=== PATIENT | male | born 2005 | race Hispanic/Latino ===

== ENCOUNTER 2023-01-07 14:50 | Outpatient (CLI) | payer BC | END 2023-01-07 14:51 | disposition home or self-care (01) | LOC: BICCT 14:50 | PROVIDERS: ATTEND Physician Assistant Medical | DX: R11.2 Nausea with vomiting, unspecified (principal); R63.4 Abnormal weight loss; R10.10 Upper abdominal pain, unspecified; R59.1 Generalized enlarged lymph nodes | CPT/HCPCS: 74177 ==

== ENCOUNTER → 2023-09-03 | Day surgery (SDC) | payer BC ==
[~2023-09-03] MED LIST: Bupivacaine PF 0.5% 30 ML VIAL ONE; EPINEPHrine 1 MG/ML VIAL ONE; Iopamidol-370 76% 500 ML MDV (1 ML CHARGE) ONE; Ketorolac Tromethamine 30 MG/ML VIAL ONE; Lidocaine 1% PF 5 ML VIAL ONE; Ondansetron PF 4 MG/2 ML Vial ONE; PROPOFOL 20 ML ONE; PROPOFOL 200 MG/20 ML VIAL ONE; Piperacillin/Tazobactam 4.5 GM VIAL ONE; Rocuronium Bromide 10 MG/ML (10ML VIAL) ONE; SUGAMMADEX SODIUM 200 MG/2 ML VIAL ONE; Sodium Chloride 0.9% 100 ML ONE; Succinylcholine 200 MG/10 ml SYRINGE FS ONE; fentaNYL PF 100 MCG/2 ML SYRINGE ONE; traMADol HCl 50 MG TAB ONE
[2023-09-03 13:21] LABS: #Monocytes 1.2 thou/uL (0.11-0.59); #Neutrophils 10.2 thou/uL (1.40-6.50); %Basophils 0.3 % (0.0-1.0); %Eosinophils 0.3 % (0.0-10.0); %Monocytes 8.9 % (0.0-4.0); %Neutrophils 77.3 % (31.0-61.0); Hematocrit 44.5 % (42.0-52.0); Hemoglobin 15.1 g/dL (14.0-18.0); Mean Corpuscular HGB CONC 33.9 g/dL (32.0-36.0); Mean Corpuscular Volume 88.5 fl (78.0-98.0); Mean Platelet Volume 10.8 fL (7.4-10.4); Platelet Count 213 10x3/uL (130-400); RBC Distribution Width 12.3 % (11.5-14.5); Red Blood Cell (RBC) Count 5.03 mill/uL (4.00-5.20); White Blood Cell (WBC) Count 13.2 10x3/uL (4.8-10.8)
[2023-09-03 13:33] LABS: Bacteria/HPF None Seen HPF (None Seen); Bilirubin Negative (Negative); Blood, Urine Negative (Negative); CAUTI Indications for Culture Pelvic or flank pain; Clarity Extra Turbid (Clear); Glucose, Urine (Dipstick) Normal (Negative); Ketone, Urine 100 mg/dL (Negative); Leukocyte Negative Leu/uL (Negative); Nitrite Negative (Negative); Protein, Urine (Dipstick) 20 mg/dL (Neg-Trace); RBC/HPF None Seen HPF (0-3); Specific Gravity, Urine 1.023 (1.002-1.036); Squamous Epithelial None Seen HPF (0-3); Urobilinogen Normal mg/dL (Less than 2); WBC/HPF None Seen HPF (0-3)
[2023-09-03 13:35] LABS: Urine Culture Reflex No No
[2023-09-03 13:42] LABS: ALT (SGPT) 51 U/L (8-55); AST (SGOT) 20 U/L (10-45); Albumin 4.8 g/dL (3.5-5.0); Alkaline Phosphatase 106 U/L (50-130); Anion Gap 13 mmol/L (10-20); BUN (Urea Nitrogen) 13 mg/dL (8.4-21.0); Calc. Creatinine Clearance 0 mL/min (70-130); Calcium 9.9 mg/dL (7.8-10.44); Carbon Dioxide 28 mmol/L (22-29); Chloride 103 mmol/L (98-107); Estimated GFR 134; Globulin 3.3 g/dL (2.4-3.5); Glucose 103 mg/dL (70-105); Lipase 13 U/L (8-78); Potassium 3.7 mmol/L (3.5-5.1); Protein, Total 8.1 g/dL (6.0-8.3); Sodium 140 mmol/L (136-145)
== END ==
LOC: ERS 11:51 → SDC 14:24
PROVIDERS: ATTEND Specialist
PROC: 0DTJ4ZZ Resection of Appendix, Percutaneous Endoscopic Approach (ICD-10-PCS; principal; 2023-09-03)
DX: K35.80 Unspecified acute appendicitis (principal); F12.90 Cannabis use, unspecified, uncomplicated
CPT/HCPCS: 74177; 80053; 81001; 83690; 85025; 88304; 96374; 96375; A4314; A4649; J0171; J1885; J2405; J2543; J2704; J3490; Q9967; S0020

== ENCOUNTER 2023-11-14 15:21 | Outpatient (CLI) | payer BC ==
[2023-11-14 16:04] LABS: #Monocytes 0.2 10x3/uL (0.0-1.1); %Basophils 0.4 % (0.0-2.0); %Eosinophils 0.2 % (0.0-6.0); %Lymphocytes 30.7 % (18.0-47.0); %Monocytes 5.1 % (0.0-10.0); %Neutrophils 63.4 % (40.0-75.0); Hematocrit 43.1 % (38.8-50.0); Hemoglobin 14.6 g/dL (13.5-17.5); Mean Corpuscular HGB CONC 33.9 g/dL (32.0-36.0); Mean Corpuscular Hemoglobin 30.4 pg (27.0-33.0); Mean Corpuscular Volume 89.6 fl (81.2-95.1); Mean Platelet Volume 10.7 fl (7.4-10.4); Platelet Count 204 10x3/uL (150-450); RBC Distribution Width 11.9 % (11.5-14.5); Red Blood Cell (RBC) Count 4.81 10x6/uL (4.32-5.72); White Blood Cell (WBC) Count 4.7 10x3/uL (3.5-10.5)
== END 2023-11-14 15:22 | disposition home or self-care (01) ==
LOC: LABBT 15:21
PROVIDERS: ATTEND Surgery
DX: Z01.812 Encounter for preprocedural laboratory examination (principal); K40.90 Unilateral inguinal hernia, without obstruction or gangrene, not specified as recurrent
CPT/HCPCS: 85025

== ENCOUNTER 2023-11-18 07:17 | Day surgery (SDC) | payer BC ==
[2023-11-14 15:44] VITALS: BMI 29.7
[2023-11-18] MEDS ORDERED: Bupivacaine 0.25% HCL 30 ML VIAL ONE (08:25)
[2023-11-18] MEDS ORDERED: EPINEPHrine 1 MG/ML VIAL ONE (08:25)
[2023-11-18] MEDS ORDERED: fentaNYL PF 100 MCG/2 ML SYRINGE ONE (09:10)
[2023-11-18] MEDS ORDERED: PROPOFOL 40 ML ONE (09:10)
[2023-11-18] MEDS ORDERED: CEFAZOLIN 1 GM VIAL ONE (09:24)
[2023-11-18] MEDS ORDERED: fentaNYL 50 mcg/mL 1 mL Vial ONE (09:26)
[2023-11-18] MEDS ORDERED: Dexamethasone 4 mg/ml Vial ONE (09:27)
[2023-11-18] MEDS ORDERED: Ondansetron PF 4 MG/2 ML Vial ONE (09:27)
[2023-11-18] MEDS ORDERED: HYDROmorphone 0.5 MG/0.5 ML SYRINGE ONE ×2 (10:31→10:59)
[2023-11-18] MEDS ORDERED: HYDROcodone/Acetaminophen 5/325 mg Tablet ONE (12:18)
== END 2023-11-18 14:32 | disposition home or self-care (01) ==
LOC: SDC 07:17
PROVIDERS: ATTEND Surgery
PROC: 0YU54JZ Supplement Right Inguinal Region with Synthetic Substitute, Percutaneous Endoscopic Approach (ICD-10-PCS; principal; 2023-11-18)
DX: K40.90 Unilateral inguinal hernia, without obstruction or gangrene, not specified as recurrent (principal); Z90.49 Acquired absence of other specified parts of digestive tract
CPT/HCPCS: A4314; C1781; J0171; J0665; J0690; J1100; J1170; J2405; J2704; J3010